=== PATIENT | female | born 1960 | race Native Hawaiian/Other Pacific Islander ===

== ENCOUNTER 2017-02-03 05:40 | Emergency (ER) | payer OTHER ==
[~2017-02-03] VITALS: Ht 157.5 cm; Wt 87.5 kg
== END 2017-02-03 06:41 | disposition left against medical advice (07) ==
LOC: ED 05:40
DX: R44.2 Other hallucinations (principal); R45.1 Restlessness and agitation
CPT/HCPCS: 99282